=== PATIENT | female | born 1930 | race Caucasian/White ===

== ENCOUNTER 2018-07-31 13:10 | Outpatient (CLI) | payer MEDICARE, MEDICAID | END 2018-07-31 23:59 | disposition home or self-care (01) | LOC: WOU 13:10 | PROVIDERS: ATTEND Podiatrist Foot & Ankle Surgery | DX: Z47.81 Encounter for orthopedic aftercare following surgical amputation (principal); I96 Gangrene, not elsewhere classified; T87.89 Other complications of amputation stump; Z89.422 Acquired absence of other left toe(s); Z79.01 Long term (current) use of anticoagulants | CPT/HCPCS: A6402; G0463 ==